=== PATIENT | male | born 1975 | race Hispanic/Latino ===

== ENCOUNTER 2019-04-20 21:23 | Emergency (ER) | payer BC ==
--- NOTE | 2019-04-20 21:45 | RAD ---
EXAM: XR Cerv Sp Ap Lat STANDARD PROVIDED CLINICAL HISTORY: Trauma COMPARISON: None FINDINGS: The skull base through the C6 vertebral body visualized on the lateral view. C7 and the cervicothorac ic junction are not visualized. Vertebral body heights appear preserved as visualized. Visualized cervical alignment appears normal. No evidence for fracture involving the visualized portions of the cervical spine. No prevertebral soft tissue swelling apparent. Visualized lung apices appear clear. Disc degenerative changes are seen at C5-6. IMPRESSION: No evidence for fracture or traumatic subluxation limitations as described.
--- NOTE | 2019-04-20 21:51 | RAD ---
EXAM: XR Shoulder Lt 3 View STANDARD PROVIDED CLINICAL HISTORY: Trauma FINDINGS: There is no evidence for fracture or other acute osseous abnormality. Alignment appears anatomic. Ilsa nt spaces appear preserved. IMPRESSION: No evidence for an acute osseous abnormality. If there is persistent clinical concern, conservative m anagement and follow-up imaging advised.
== END 2019-04-20 22:05 ==
LOC: MADERS 21:23
DX: S43.402A Unspecified sprain of left shoulder joint, initial encounter (principal); I10 Essential (primary) hypertension; V89.2XXA Person injured in unspecified motor-vehicle accident, traffic, initial encounter
CPT/HCPCS: 72040